=== PATIENT | male | born 1955 | race African-American/Black ===

== ENCOUNTER 2022-01-03 16:18 | Emergency (ER) | payer BC, SELFPAY ==
--- OUTSIDE RECORDS SUMMARY | 2022-01-03 16:21 | XMS REPORT | Continuity of Care Document ---
:1955 Author Organization [facility] t Address [address] [place] [address] Care Team Providers Name Role Phone Anne Marie HAMMOND Primary Care Physician FABIEN Attending Clinician Unavailable Lynette Greene MD Attending Clinician Vadim RANDLE Attending Clinician Unavailable Devorah RANDLE Attending Clinician Unavailable Marianela Attending Clinician Unavailable Jordana BEAN Attending Clinician Unavailable FABIEN Attending Clinician Unavailable RADHA Attending Clinician Unavailable ANNE MARIE Attending Clinician Unavailable SELIN Attending Clinician Unavailable KELLEY Attending Clinician Unavailable BHANU Attending Clinician Unavailable Payers Payer Name Policy Type Policy Number Effective Date Expiration Date Elzbieta anaya [id number] PPO [id number] 2005 00:00:00 Problems Condition Condition Condition Status Onset Resolution Last Treating Co mments Source Name Details Category Date Date Treatment Clinician Date Fatigue Fatigue Disease Active 01-17 Health 00:00: 00 Hyperchole Hyperchole Disease Active U T sterolemia sterolemia 04-22 He alth 00:00: 00 Low Low Disease Active UT vitamin D vitamin D 04-22 Heal th level level 00:00: 00 Toe Toe Disease Active fracture fracture 04-22 Health 00:00: 00 Smoking Smoking Disease Active UT greater greater 04-22 Health than 30 than 30 00:00: pack years pack years 00 Snoring Snoring Disease Active 04-22 Health 00:00: 00 Parasomnia Parasomnia Disease Active U T in in 04-22 Health conditions conditions 00:00: classified classified 00 elsewhere elsewhere BMI BMI Disease Active UT 30.0-30.9, 30.0-30.9, 8-09 He alth adult adult 00:00: 00 Screening Screening Disease Active UT for for 04-22 Health prostate prostate 00:00: cancer cancer 00 Essential Essential Disease Active UT (primary) (primary) 04-22 Heal th hypertensi hypertensi 00:00: on on 00 Need for Need for Disease Active UT Tdap Tdap 611 Health vaccinatio vaccinatio 00:00: n n 00 Pain of Pain of Disease Active UT toe of toe of 02-22 Health left foot left foot 00:00: 00 Elevated Elevated Disease Active UT prostate prostate 05-20 Health specific specific 00:00: antigen antigen 00 (PSA) (PSA) Vitamin D Vitamin D Disease Active UT deficiency deficiency 7-30 He alth 00:00: 00 Bacterial Bacterial Disease Active UT conjunctiv conjunctiv 7-30 He alth itis of itis of 00:00: left eye left eye 00 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 00:00: disease disease 00 Hematuria Hematuria Disease Active UT 5-23 Health 00:00: 00 History of History of Problem Resolve Univers Acute Acute d ity of upper [place] respirator respirator Ph ysici y y ans infection infection History of History of Problem Resolve Univers Acute UTI Acute UTI d ity of [place] Physici ans History of History of Problem Resolve Univers back pain back pain d ity of [place] Physici ans History of History of Problem Resolve Univers bronchitis bronchitis d it y of [place] Physici ans History of History of Problem Resolve Univers headache headache d ity of [place] Physici ans History of History of Problem Resolve Univers polyuria polyuria d ity of [place] Physici ans History of History of Problem Resolve Univers Rhinitis Rhinitis d ity of [place] Physici ans History of History of Problem Resolve Univers sciatica sciatica d ity of [place] Physici ans History of History of Problem Resolve Univers Scrotum, Scrotum, d ity of abscess abscess [place] Physici ans History of History of Problem Resolve Univers Tingling Tingling d ity of [place] Physici ans History of History of Problem Resolve Univers Viral wart Viral wart d it [place] of [place] finger [place] finger [place] Hematuria Hematuria Problem Active Uni vers ity of [place] Physici ans Multilevel Multilevel Problem Active U nivers degenerati degenerati it y of ve disc ve disc [place] disease disease Physici ans Vitamin D Vitamin D Problem Active Uni vers deficiency deficiency it y of [place] Physici ans Bacterial Bacterial Problem Active Uni vers conjunctiv conjunctiv it y of itis of itis of [place] left eye left eye Physic i ans Elevated Elevated Problem Active Unive rs prostate prostate ity of specific specific [place] antigen antigen Physici (PSA) (PSA) ans Pain of Pain of Problem Active Univers toe of toe of ity of left foot [place] foot [place] Need for Need for Problem Active Unive rs Tdap Tdap ity of vaccin[place] vaccinatio [place] Physici ans Essential Essential Problem Active Uni vers (primary) (primary) ity of hypertens[place]ens[place] Physici ans BMI BMI Problem Active Univers 30.0-30.9, 30.0-30.9, it y of adult adult [place] Physici ans Toe Toe Problem Active Univers fracture fracture ity of [place] [facility]ici ans Hyperchole Hyperchole Problem Active U nivers sterolemia sterolemia it y of [place] Physici ans Low Low Problem Active Univers vitamin D vitamin D ity of level level [place] Physici ans Snoring Snoring Problem Active Univers ity of [place] [facility]ici ans Screening Screening Problem Active Uni vers for for ity of prostate prostate [place] cancer cancer Physici ans Smoking Smoking Problem Active Univers greater greater ity of than 30 than 30 [place] pack years pack years Ph ysici ans Parasomnia Parasomnia Problem Active U nivers [place] classified classified Ph ysici elsewhere elsewhere ans Colon Colon Problem Active Univers cancer cancer [place] Current Current Problem Active Univers smoker smoker ity of [place] Physici ans Fatigue Fatigue Problem Active Univers ity of [place] Physici ans Allergies, Adverse Reactions, Alerts Allergy Allergy Status Severity Reaction(s) Onset Inactive Treating Comm ents Source Name Type Date Date Clinician Lisinopr Propensi Active UT il ty to 5-20 Health adverse 00:00: reaction 00 s Lisinopr Allergy Active Univers il TABS to drug ity of ([facility] ) Physici ans Family History Family Member Diagnosis Comments Start Date Stop Date Source Grandmother Family history of Univer sity of [place] diabetes mellitus Physici ans spouse Family history of Univers ity of [place] malignant neoplasm Physic ians Mother Family history of Univers ity of [place] essential hypertension Ph ysicians Mother Family history of Univers ity of [place] diabetes mellitus Physici ans Sister Family history of Univers ity of [place] diabetes mellitus Physici ans Social History Social Habit Start Date Stop Date Quantity Comments Source History SDOH Housing [facility] Places Lived History SDOH Social [facility] Membership History SDOH Social [facility] Meetings History SDOH Housing 2021-02-15 2021-02-15 2 [facility] Unable to Pay 00:00:00 00:00:00 History SDOH Housing 2021-02-15 2021-02-15 2 [facility] Homeless Last Year 00:00:00 00:00:00 History SDOH Social 2021-02-15 2021-02-15 4 [facility] Phone 00:00:00 00:00:00 History SDOH Social 2021-02-15 2021-02-15 4 [facility] Get Together 00:00:00 00:00:00 History SDOH Social 2021-02-15 2021-02-15 3 [facility]ctions Mormon 00:00:00 00:00:00 History SDOH Social 2021-02-15 2021-02-15 3 [facility] Living 00:00:00 00:00:00 History SDOH Physical 2021-02-15 2021-02-15 0 [facility] Health Activity DPW 00:00:00 00:00:00 History SDOH Physical 2021-02-15 2021-02-15 0 [facility] Health Activity MPS 00:00:00 00:00:00 History SDOH Stress 2021-02-15 2021-02-15 2 UT He alth 00:00:00 00:00:00 History SDOH Financial 2021-02-15 2021-02-15 5 [facility] 00:00:00 00:00:00 History SDOH Food Worry 2021-02-15 2021-02-15 1 U T Health 00:00:00 00:00:00 History SDOH Food 2021-02-15 2021-02-15 1 UT Heal th Scarcity 00:00:00 00:00:00 History SDOH Transport 2021-02-15 2021-02-15 2 [facility] Med 00:00:00 00:00:00 History SDOH Transport 2021-02-15 2021-02-15 2 [facility] Non-Med 00:00:00 00:00:00 [birth year] [facility] 00:00:00 00:00:00 Smoking Status Start Date Stop Date Source Smoker (finding) [facility] Physicians Tobacco smoking consumption [place] H ealt unknown Smokes tobacco daily 2021-01-31 00:00:00 [facility] Medications Ordered Filled Start Stop Current Ordering Indication Dosage Frequency Signature Comments Components Source Medication Medication Date Date Medication? Clinician (SIG) Name Name metFORMIN 2020-09 Yes [id number] 500mg Take 1 U T (Glucophage 2-08 tablet Health ) 500 MG 00:00: (500 mg tablet 00 total) by mouth 2 (two) times a day with meals. amLODIPine 2020-09 Yes [id number] 5mg QD Take 1 U T (Norvasc) 5 2-08 tablet (5 Hea lth MG tablet 00:00: mg total) 00 by mouth 1 (one) time each day. metoprolol 2020-09 Yes [id number] 200mg Take 1 UT succinate 2-08 tablet Health XL 00:00: (200 mg (Toprol-XL) 00 total) by 200 MG 24 mouth hr tablet every night. rosuvastati 2020-09 Yes [id number] 10mg Take 1 UT n (Crestor) 2-08 tablet (10 He alth 10 MG 00:00: mg total) tablet 00 by mouth every night. triamterene 2020-09 Yes [id number] 1{tbl} QD Take 1 UT -hydrochlor 2-08 tablet by Hea lth othiazide 00:00: mouth 1 (Maxzide-25 00 (one) time ) 37.5-25 each day. MG tablet rosuvastati 2020-09 Yes [id number] 10mg Take 1 UT n (Crestor) 2-08 tablet (10 He alth 10 MG 00:00: mg total) tablet 00 by mouth every night. rosuvastati Yes [id number] 10mg Take 1 UT n (Crestor) 8-21 tablet (10 He alth 10 MG 00:00: mg total) tablet 00 by mouth every night. triamterene 2020- No [id number] 1{tbl} QD Take 1 UT -hydrochlor 05-04 tablet by He alth othiazide 00:00: 05:59 mouth 1 (Maxzide-25 00 :00 (one) time ) 37.5-25 each day. MG tablet tamsulosin 2020- No [id number] .4mg QD Take 1 UT (Flomax) 05-04 capsule Health 0.4 MG 24 00:00: 05:59 (0.4 mg hr capsule 00 :00 total) by mouth 1 (one) time each day. metoprolol 2020- No [id number] 200mg Take 1 UT succinate 05-04 tablet Health XL 00:00: 05:59 (200 mg (Toprol-XL) 00 :00 total) by 200 MG 24 mouth hr tablet every night. amLODIPine 2020- No [id number] 5mg QD Take 1 UT (Norvasc) 5 05-04 tablet (5 He alth MG tablet 00:00: 05:59 mg total) 00 :00 by mouth 1 (one) time each day. No known No No known UT medications -20 medication He alth 16:47: s 29 metFORMIN Yes [id number] 500mg Take 1 U T (Glucophage 5-11 tablet Health ) 500 MG 00:00: (500 mg tablet 00 total) by mouth 2 (two) times a day with meals. metFORMIN 2020- No [id number] 500mg Take 1 UT (Glucophage 5-11 08-10 tablet Healt h ) 500 MG 00:00: 04:59 (500 mg tablet 00 :00 total) by mouth 2 (two) times a day with meals. metFORMIN 2020- No [id number] 500mg Take 1 UT (Glucophage 5-11 08-10 tablet Healt h ) 500 MG 00:00: 04:59 (500 mg tablet 00 :00 total) by mouth 2 (two) times a day with meals. metFORMIN 2020- No [id number] 500mg Take 1 UT (Glucophage 5-11 08-10 tablet Healt h ) 500 MG 00:00: 04:59 (500 mg tablet 00 :00 total) by mouth 2 (two) times a day with meals. metFORMIN 2020- No [id number] 500mg Take 1 UT (Glucophage 5-11 08-10 tablet Healt h ) 500 MG 00:00: 04:59 (500 mg tablet 00 :00 total) by mouth 2 (two) times a day with meals. metFORMIN 2020- No [id number] 500mg Take 1 UT (Glucophage 5-11 08-10 tablet Healt h ) 500 MG 00:00: 04:59 (500 mg tablet 00 :00 total) by mouth 2 (two) times a day with meals. metFORMIN 2020- No [id number] 500mg Take 1 UT (Glucophage 5- 08-10 tablet Healt h ) 500 MG 00:00: 04:59 (500 mg tablet 00 :00 total) by mouth 2 (two) times a day with meals. metFORMIN 2020- No [id number] 500mg Take 1 UT (Glucophage 5- 08-10 tablet Healt h ) 500 MG 00:00: 04:59 (500 mg tablet 00 :00 total) by mouth 2 (two) times a day with meals. nitrofurant 2020- No [id number] 100mg Q.5D Take 1 UT oin, 01-22 capsule Health macrocrysta 00:00: 04:59 (100 mg l-monohydra 00 :00 total) by te, mouth 2 (Macrobid) (two) 100 MG times a capsule day for 10 days. nitrofurant 2020- No [id number] 100mg Q.5D Take 1 UT oin, 01-22 capsule Health macrocrysta 00:00: 04:59 (100 mg l-monohydra 00 :00 total) by te, mouth 2 (Macrobid) (two) 100 MG times a capsule day for 10 days. nitrofurant 2020- No [id number] 100mg Q.5D Take 1 UT oin, 01-22 capsule Health macrocrysta 00:00: 04:59 (100 mg l-monohydra 00 :00 total) by te, mouth 2 (Macrobid) (two) 100 MG times a capsule day for 10 days. nitrofurant 0 2020- No [id number] 100mg Q.5D Take 1 UT oin, 01-22 capsule Health macrocrysta 00:00: 04:59 (100 mg l-monohydra 00 :00 total) by te, mouth 2 (Macrobid) (two) 100 MG times a capsule day for 10 days. nitrofurant 0 2020- No [id number] 100mg Q.5D Take 1 UT oin, 01-22 capsule Health macrocrysta 00:00: 04:59 (100 mg l-monohydra 00 :00 total) by te, mouth 2 (Macrobid) (two) 100 MG times a capsule day for 10 days. Vitamin D Vitamin D Yes FAIZMEEN TAKE 1 Univers (Ergocalcif (Ergocalcif - [employer] CLIENT SUPPORT MANAGER CAPSULE ity of ayana) 1.25 ayana) 1.25 00:00: WEEKLY. [place] MG (40707 MG (87675 00 Physi ci UT) Oral UT) Oral ans Capsule Capsule Tamsulosin Tamsulosin Yes FAIZMEEN 1 QD TAKE 1 Univers HCl - 0.4 HCl - 0.4 5-06 [employer]IENT SUPPORT MANAGER [employer]SULE ity of MG Oral MG Oral 00:00: DAILY [place] Capsule Capsule 00 Physici ans metoprolol 0 Yes 200mg Take 200 UT succinate 5-06 mg by Health XL 00:00: mouth (Toprol-XL) 00 every 200 MG 24 night. hr tablet ergocalcife 0 Yes [id number] Take UT rol 5-06 50,000 Health (Vitamin 00:00: Units by D2) 1.25 MG 00 mouth 1 (80202 UT) (one) time capsule per week. rosuvastati 0 Yes 10mg Take 10 mg UT n (Crestor) 5-06 by mouth Heal th 10 MG 00:00: every tablet 00 night. tamsulosin 2020-0 Yes .4mg QD Take 0.4 UT (Flomax) 5-06 mg by Health 0.4 MG 24 00:00: mouth 1 hr capsule 00 (one) time each day. triamterene 0 Yes 1{tbl} QD Take 1 UT -hydrochlor 5-[address] [facility] othiazide 00:00: mouth 1 (Maxzide-25 00 (one) time ) 37.5-25 each day. MG tablet amLODIPine 2021-0 Yes 5mg QD Take 5 mg UT (Norvasc) 5 5-06 by mouth 1 He alth MG tablet 00:00: (one) time 00 each day. metoprolol 2021-0 Yes 200mg Take 200 UT succinate 5-06 mg by Health XL 00:00: mouth (Toprol-XL) 00 every 200 MG 24 night. hr tablet ergocalcife 2021-0 Yes [id number] Take UT rol 5-06 50,000 Health (Vitamin 00:00: Units by D2) 1.25 MG 00 mouth 1 (84522 UT) (one) time capsule per week. rosuvastati 2021-0 Yes 10mg Take 10 mg UT n (Crestor) 5-06 by mouth Heal th 10 MG 00:00: every tablet 00 night. amLODIPine 2021-0 Yes 5mg QD Take 5 mg UT (Norvasc) 5 5-06 by mouth 1 He alth MG tablet 00:00: (one) time 00 each day. metoprolol 2021-0 Yes 200mg Take 200 UT succinate 5-06 mg by Health XL 00:00: mouth (Toprol-XL) 00 every 200 MG 24 night. hr tablet ergocalcife 2021-0 Yes [id number] Take UT rol 5-06 50,000 Health (Vitamin 00:00: Units by D2) 1.25 MG 00 mouth 1 (67848 UT) (one) time capsule per week. rosuvastati 2021-0 Yes 10mg Take 10 mg UT n (Crestor) 5-06 by mouth Heal th 10 MG 00:00: every tablet 00 night. tamsulosin 2021-0 Yes .4mg QD Take 0.4 UT (Flomax) 5-06 mg by Health 0.4 MG 24 00:00: mouth 1 hr capsule 00 (one) time each day. triamterene 2021-0 Yes 1{tbl} QD Take 1 UT -hydrochlor 5-[address] [facility] othiazide 00:00: mouth 1 (Maxzide-25 00 (one) time ) 37.5-25 each day. MG tablet amLODIPine 2021-0 Yes 5mg QD Take 5 mg UT (Norvasc) 5 5-06 by mouth 1 He alth MG tablet 00:00: (one) time 00 each day. metoprolol Yes 200mg Take 200 UT succinate 5-06 mg by Health XL 00:00: mouth (Toprol-XL) 00 every 200 MG 24 night. hr tablet ergocalcife 0 Yes [id number] Take UT rol 5-06 50,000 Health (Vitamin 00:00: Units by D2) 1.25 MG 00 mouth 1 (90887 UT) (one) time capsule per week. rosuvastati Yes 10mg Take 10 mg UT n (Crestor) 5-06 by mouth Heal th 10 MG 00:00: every tablet 00 night. tamsulosin Yes .4mg QD Take 0.4 UT (Flomax) 5-06 mg by Health 0.4 MG 24 00:00: mouth 1 hr capsule 00 (one) time each day. triamterene Yes 1{tbl} QD Take 1 UT -hydrochlor 5-06 tablet by Hea lth othiazide 00:00: mouth 1 (Maxzide-25 00 (one) time ) 37.5-25 each day. MG tablet amLODIPine Yes 5mg QD Take 5 mg UT (Norvasc) 5 5-06 by mouth 1 He alth MG tablet 00:00: (one) time 00 each day. amLODIPine amLODIPine Yes FAIZMEEN TAKE ONE Univers Besylate 5 Besylate 5 8-09 [employer]IENT SUPPORT MANAGER TABLET BY ity of MG Oral MG Oral 00:00: MOUTH [place] Tablet Tablet 00 DAILY Physici ans Triamterene Triamterene Yes FAIZMEEN TAKE 1 Univers -HCTZ -HCTZ 3-29 [employer] CLIENT SUPPORT MANAGER TABLET BY it y of 37.5-25 MG 37.5-25 MG 00:00: MOUTH ONCE [place] Oral Tablet Oral Tablet 00 DAILY Physici ans Metoprolol Metoprolol Yes FAIZMEEN TAKE 1 Univers Succinate Succinate 3-29 [employer] CLIENT SUPPORT MANAGER TABLET BY ity of ER 200 MG ER 200 MG 00:00: MOUTH AT [place] Oral Tablet Oral Tablet 00 BEDTIME Physici Extended Extended ans Release 24 Release 24 Hour Hour Rosuvastati Rosuvastati Yes FAIZMEEN TAKE 1 Univers n Calcium n Calcium 3-29 [employer] CLIENT SUPPORT MANAGER TABLET BY miriam of 10 MG Oral 10 MG Oral 00:00: MOUTH ONCE [place] Tablet Tablet 00 DAILY AT Physici BEDTIME ans Immunizations Ordered Immunization Filled Immunization Date Status Commen ts Source Name Name Annie COVID-19 2020-11-28 Completed Universi ty of Vaccine 100 00:00:00 [place] Physici ans MCG/0.5ML Intramuscular Suspension Covid-19 Moderna 2020-11-28 Completed [facility] SARS-CoV-2 00:00:00 Vaccination Covid-19 Moderna 2020-11-28 Completed [facility] SARS-CoV-2 00:00:00 Vaccination COVID-19 Moderna 18 2020-11-28 Completed UT He alth & Over Vaccination 00:00:00 COVID-19 Moderna 18 2020-11-28 Completed UT He alth & Over Vaccination 00:00:00 COVID-19 Moderna 18 2020-11-28 Completed UT He alth & Over Vaccination 00:00:00 Covid-19 Moderna 2020-11-28 Completed [facility] SARS-CoV-2 00:00:00 Vaccination Covid-19 Moderna 2020-11-28 Completed [facility] SARS-CoV-2 00:00:00 Vaccination Moderna COVID-19 2020-10-29 Completed Universi ty of Vaccine 100 00:00:00 [place] Physici ans MCG/0.5ML Intramuscular Suspension Covid-19 Moderna 2020-10-29 Completed [facility] SARS-CoV-2 00:00:00 Vaccination Covid-19 Moderna 2020-10-29 Completed [facility] SARS-CoV-2 00:00:00 Vaccination COVID-19 Moderna 18 2020-10-29 Completed UT He alth & Over Vaccination 00:00:00 COVID-19 Moderna 18 2020-10-29 Completed UT He alth & Over Vaccination 00:00:00 COVID-19 Moderna 18 2020-10-29 Completed UT He alth & Over Vaccination 00:00:00 Covid-19 Moderna 2020-10-29 Completed [facility] SARS-CoV-2 00:00:00 Vaccination Covid-19 Moderna 2020-10-29 Completed [facility] SARS-CoV-2 00:00:00 Vaccination Tdap 2019-02-22 Completed University of 15:35:00 [place] Physicia ns Tdap 2019-02-22 [facility] 00:00:00 Tdap 2019-02-22 [facility] 00:00:00 Tdap 2019-02-22 Completed [facility] 00:00:00 Tdap 2019-02-22 [facility]pleted [facility] 00:00:00 Tdap 2019-02-22 [facility]pleted [facility] 00:00:00 Tdap 2019-02-22 [facility]pleted [facility] 00:00:00 Tdap 2019-02-22 [facility]pleted [facility] 00:00:00 Vital Signs Vital Name Observation Time Observation Value Comments Source Weight 2021-01-17 265 [lb_av] [facility] 09:59:00 [place] Physician s Body mass index 2021-01-17 30.24 kg/m2 University o f (BMI) [Ratio] 09:59:00 [place] Physicia ns Body height 2021-01-17 78.5 [in_us] [facility] 09:59:00 [place] Physician s Body temperature 2021-01-17 97.9 [degF] Method: Oral University 09:59:00 [place] Physician s Heart Rate 2021-01-17 65 /min [facility] 09:59:00 [place] Physician s Systolic blood 2021-01-17 166 mm[Hg] Location: [facility] 09:59:00 Position: [place] Physician s Sitting Diastolic blood 2021-01-17 96 mm[Hg] Location: [facility] 09:59:00 Position: [place] Physician s Sitting BP Systolic 2019-04-22 158 mm[Hg] [facility] 09:58:00 [place] Physician s BP Diastolic 2019-04-22 87 mm[Hg] [facility] 09:58:00 [place] Physician s BP Systolic 2019-04-22 169 mm[Hg] [facility] 09:01:00 [place] Physician s BP Diastolic 2019-04-22 98 mm[Hg] [facility] 09:01:00 [place] Physician s Weight 2019-04-22 265 [lb_av] [facility] 09:01:00 [place] Physician s Body Mass Index 2019-04-22 30.24 kg/m2 University o f Calculated 09:01:00 [place] Physician s Height 2019-04-22 78.5 [in_us] [facility] 09:01:00 [place] Physician s Temperature 2019-04-22 98.4 [degF] Method: Oral University of 09:01:00 [place] Physician s Heart Rate 2019-04-22 69 /min University of 09:01:00 [place] Physician s BP Systolic 2019-02-22 155 mm[Hg] Location: [facility]; [facility] 14:35:00 Position: [place] Physician s Sitting BP Diastolic 2019-02-22 88 mm[Hg] Location: [facility]; [facility] 14:35:00 Position: [place] Physician s Sitting Temperature 2019-02-22 98.4 [degF] Method: Oral University 14:35:00 [place] Physician s Heart Rate 2019-02-22 72 /min University 14:35:00 [place] Physician s BP Systolic 2018-04-12 161 mm[Hg] Location: [facility] 13:14:00 Position: [place] Physician s Sitting BP Diastolic 2018-04-12 95 mm[Hg] Location: [facility] 13:14:00 Position: [place] Physician s Sitting Weight 2018-04-12 236 [lb_av] [facility] 13:14:00 [place] Physician s Body Mass Index 2018-04-12 26.93 kg/m2 [facility] Calculated 13:14:00 [place] Physician s Height 2018-04-12 78.5 [in_us] University 13:14:00 [place] Physician s Temperature 2018-04-12 98.4 [degF] Method: Oral [facility] 13:14:00 [place] Physician s Heart Rate 2018-04-12 55 /min [facility] 13:14:00 [place] Physician s Procedures Procedure Date / Time Performed Performing Clinician Sourc e [QL] CMP W/EGFR 2021-01-17 00:00:00 [facility] Physicians [QL] HEMOGLOBIN A1c 2021-01-17 00:00:00 [facility] Physicians [QL] LIPID PANEL 2021-01-17 00:00:00 [facility] Physicians [QL] VITAMIN D, 2021-01-17 00:00:00 [facility] 25-HYDROXY, LC/MS/MS Physicians [QL] CBC (INCLUDES 2021-01-17 00:00:00 [facility] DIFF/PLT) Physicians [QL] TSH, 3RD 2021-01-17 00:00:00 [facility] GENERATION W/REFLEX TO Physician s FT4 [QL] URINALYSIS, 2021-01-17 00:00:00 [facility] COMPLETE W/REFLEX TO Physicians CULTURE [QL] MICROALBUMIN, 2021-01-17 00:00:00 [facility] RANDOM URINE (W/O Physicians CREATININE) CT Abdomen/Pelvis wo 2021-01-17 00:00:00 [facility] contrast [id number] Physicians Hemoccult ICT 2019-04-22 00:00:00 [facility] Physicians [N] AAA Abdominal 2019-04-22 00:00:00 [facility] Aortic Aneurysm Physicians Screening [id number] [QLH] CMP W/EGFR 2019-04-22 00:00:00 [facility] Physicians [QLH] HEMOGLOBIN A1c 2019-04-22 00:00:00 [facility] Physicians [QLH] LIPID PANEL 2019-04-22 00:00:00 [facility] Physicians [QLH] TSH, 3RD 2019-04-22 00:00:00 [facility] GENERATION W/REFLEX TO Physician s FT4 [QLH] PSA, TOTAL 2019-04-22 00:00:00 [facility] Physicians [QLH] CBC (INCLUDES 2019-04-22 00:00:00 [facility] DIFF/PLT) Physicians [QLH] VITAMIN D, 2019-04-22 00:00:00 [facility] 25-HYDROXY, LC/MS/MS Physicians [QL] HEPATITIS PANEL 2019-04-22 00:00:00 [facility] Physicians [QH] HIV AB, HIV 1/2, 2019-04-22 00:00:00 [facility] EIA, WITH REFLEXES Physicians [QLH] CMP W/EGFR 2019-02-22 00:00:00 [facility] Physicians [QLH] HEMOGLOBIN A1c 2019-02-22 00:00:00 [facility] Physicians [QLH] LIPID PANEL 2019-02-22 00:00:00 [facility] Physicians [QLH] MICROALBUMIN, 2019-02-22 00:00:00 [facility] RANDOM URINE Physicians (W/CREATININE) [QLH] TSH, 3RD 2019-02-22 00:00:00 [facility] GENERATION W/REFLEX TO Physician s FT4 [QLH] CBC (INCLUDES 2019-02-22 00:00:00 [facility] DIFF/PLT) Physicians [QLH] PSA, TOTAL 2019-02-22 00:00:00 [facility] Physicians [QLH] VITAMIN D, 2019-02-22 00:00:00 [facility] 25-HYDROXY, LC/MS/MS Physicians [U] XRAY FOOT MIN 3 2019-02-22 00:00:00 [facility] VWS LEFT [id number] Physicians [QLH] CBC (INCLUDES 2018-04-12 00:00:00 [facility] DIFF/PLT) Physicians [QLH] CMP W/EGFR 2018-04-12 00:00:00 [facility] Physicians [QLH] HEMOGLOBIN A1c 2018-04-12 00:00:00 [facility] Physicians [QL] PSA, TOTAL 2018-04-12 00:00:00 [facility] Physicians [QL] VITAMIN D, 2018-04-12 00:00:00 [facility] 25-HYDROXY, LC/MS/MS Physicians [QLH] MAGNESIUM 2018-04-12 00:00:00 [facility] Physicians Encounters Start End Encounter Admission Attending Care Care Encounter Source Date/Time Date/Time Type Type Clinicians Facility Department ID 2021-08-15 Outpatient [facility] [id number] [place] 09:43:45 [facility] 2021-12-31 2021-12-31 Telephone ARAVIND Greene 6400 1.2.840.114 [id number] [place] 00:00:00 00:00:00 Brendon DOWNEY [id number] Health Kondred 9.2.7.2.686 [id number] 1 2021-08-21 2021-08-21 Telephone Bob Conn 1.2.840.114 [id number] [place] 00:00:00 00:00:00 aguslagiovanni Medina [id number] Health Medical 9.2.7.2.686 [place] [id number] 1 2021-08-15 2021-08-15 Telephone Bob Conn 1.2.840.114 [id number] [place] 00:00:00 00:00:00 [facility] [place] [id number] Health Medical 9.2.7.2.686 [place] [id number] 1 2021-07-12 2021-07-12 Patient Nadia Fierro 1.2.840.114 [id number] [place] 00:00:00 00:00:00 Outreach Alexandra Fierro [id number] Health Medical 9.2.7.2.686 [place] [id number] 1 2021-02-15 2021-02-15 Patient Nadia Fierro 1.2.840.114 [id number] [place] 00:00:00 00:00:00 Outreach Alexandra Fierro [id number] Health Medical 9.2.7.2.686 [place] [id number] 1 2021-02-12 2021-02-12 Patient Nadia Fierro 1.2.840.114 [id number] [place] 00:00:00 00:00:00 Outreach Alexandra Fierro [id number] Health Medical 9.2.7.2.686 [place] [id number] 1 2021-01-31 2021-01-31 Telemedici Bob Conn 1.2.840.114 [id number] [place] 16:00:00 16:30:00 ne Shubham Medina 350.1.13.58 Health Medical 9.2.7.2.686 [place] [id number] 1 2021-01-31 2021-01-31 Abstract Gricelda Fairchild 1.2.840 .114 [id number] [place] 00:00:00 00:00:00 Gricelda Fairchild [id number] Health Medical 9.2.7.2.686 [place] [id number] 1 2021-01-29 2021-01-29 Patient Marcie Bear 1.2.840.114 [id number] [place] 00:00:00 00:00:00 Outreach Marcie Bearaire [id number] Health Medical 9.2.7.2.686 [place] [id number] 1 2021-01-23 2021-01-23 Telephone Hanna Silveira 1.2.840.114 [id number] [place] 00:00:00 00:00:00 Hanna Silveira 350.1.13.58 Health Medical 9.2.7.2.686 [place] [id number] 1 2021-01-22 2021-01-22 Orders Bob Conn 1.2.840.114 [id number] [place] 00:00:00 00:00:00 Only Shubham Robinsaire [id number] Health Medical 9.2.7.2.686 [place] [id number] 1 2021-01-17 2021-01-17 Appointmen FABIEN, [facility] Family [id number] Univers 10:15:00 10:15:00 t; [facility]HAM CONN [facility] 2020-12-17 2020-12-17 Outpatient BROWN, [facility] [id number] [place] 00:00:00 00:00:00 MARIA LUISA 217 Method i 2020-12-17 2020-12-17 [facility] [id number] [address] [place] 00:00:00 00:00:00 MARIA LUISA 095 Method i 2020-12-10 2020-12-10 [facility] [id number] [address] [place] 00:00:00 00:00:00 MARIA LUISA 950 Method i 2020-06-11 2020-06-11 Outpatient [facility] [id number] [address] [place] 00:00:00 00:00:00 MARIA LUISA 178 Method i 2019-05-06 2019-05-06 Appointmen ANNE MARIE [facility] UTP [id number] Univers 10:00:00 10:00:00 t; PHOEBE KENNEY ity of TREPANJEET M.D. [place], M.D. Physici ans 2019-04-22 2019-04-22 Appointmen KENNEYARAVIND WILDER Family [id number] Univers 08:20:00 08:20:00 t; PHOEBE KENNEY Practice - ity Bethany flannery M.D. Physici ans 2019-03-11 2019-03-11 Appointmen ARAVIND KENNEY Family [id number] Univers 10:40:00 10:40:00 t; ANNE MARIE PHOEBE, Practice - ity of PHOEBE flannery M.D. Physici ans 2019-02-22 2019-02-22 Appointmen ARAVIND KENNEY Family [id number] Univers 14:00:00 14:00:00 t; KENNEY PHOEBE, Practice - ity of PHOEBE flannery M.D. Physici ans 2018-04-12 2018-04-12 Appointmen ARAVIND SMALLWOOD [place] [id number] Univers 13:20:00 13:20:00 t; JUSTYN SMALLWOOD, Family ity of JUSTYN, D.O. [facility] D.O. Physici ans 2017-12-31 2017-12-31 Appointmen SELIN, [facility] [id number] Univers 15:00:00 15:00:00 t; JUSTYN SMALLWOOD ity of JUSTYN, D.O. [place] D.O. Physici ans 2017-11-24 2017-11-24 Appointmen SELIN, [facility] UTP [id number] Univers 09:40:00 09:40:00 t; JUSTYN SMALLWOOD ity of JUSTYN, D.O. [place] D.O. Physici ans 2017-03-25 2017-03-25 Appointmen KELLEY, [facility] UTP [id number] Univers 15:40:00 15:40:00 t; THIAGO BENSON ity of MANNIE, M.D. [place] M.D. Physici ans 2016-11-28 2016-11-28 Appointmen KELLEY, ARAVIND UTP [id number] Univers 09:20:00 09:20:00 t; THIAGO BENSON ity of MANNIE, M.D. [place] M.D. Physici ans 2016-07-18 2016-07-18 Appointmen BHANU, ARAVIND UTP [id number] Univers 13:00:00 13:00:00 t; ANANTH DRUMMOND P.A. i ty of [place]ie [place] Physici ans Results Test Description Test Time Test Comments Results Result Comments Source [QL] URINALYSIS, COMPLETE W/REFLEX TO CULTURE 2021-01-17 00: 00:00 Test Item Value Reference Range Interpretation Comme nts COLOR; Normal (test code = DARK YELLOW YELLOW N 5778-6) APPEARANCE (test code = CLEAR CLEAR N APPEARANCE) SPECIFIC GRAVITY; Normal 1.033 1.001-1.035 N (test code = 2965-2) PH; Normal (test code = 5.5 5.0-8.0 N 2756-5) GLUCOSE; Normal (test code NEGATIVE NEGATIVE N = 1547-9) BILIRUBIN; Normal (test NEGATIVE NEGATIVE N code = 76816-9) KETONES; Abnormal (test TRACE NEGATIVE A code = 85483-2) OCCULT BLOOD; Normal (test NEGATIVE NEGATIVE N code = 77452-1) PROTEIN; Abnormal (test TRACE NEGATIVE A code = 74173-5) NITRITE (test code = NEGATIVE NEGATIVE N NITRITE) LEUKOCYTE ESTERASE (test TRACE NEGATIVE A code = LEUKOCYTE ESTERASE) WBC; Normal (test code = 0-5 See_Comment N [A utomated message] The 6690-2) system which [employer] nerated this result tra nsmitted reference range : < OR = 5. The reference r veronica was not used to int erpret this result as arielle l/abnormal. RBC; Normal (test code = NONE SEEN See_Comment N [A utomated message] The 789-8) system which [employer] nerated this result tra nsmitted reference range : < OR = 2. The reference r veronica was not used to int erpret this result as arielle l/abnormal. SQUAMOUS EPITHELIAL CELLS 0-5 See_Comment [ Automated message] The (test code = 44444-9) system which generated this result tra nsmitted reference range : < OR = 5. The reference r veronica was not used to int erpret this result as arielle l/abnormal. BACTERIA; Abnormal (test FEW NONE SEEN A code = 630-4) HYALINE CAST; Normal (test NONE SEEN NONE SEEN N code = 93007-9) COMMENTS (test code = FEW MUCOUS THREADS 23967-8) [facility] [place] [facility], [facility]] CBC (INCLUDES DIFF/PLT)2019-04-22 10:45:01 Test Item Value Reference Range Interpretation Comments WBC (test code = 6690-2) 6.3 {K/CMM} 3.7-10.4 RBC (test code = 789-8) 5.01 {M/CMM} 4.70-6.10 Hgb (test code = 718-7) 15.0 g/dl 14.0-18.0 Hct (test code = 94627-0) 45.5 % 42.0-54.0 MCV (test code = 787-2) 90.8 fL 80.0-94.0 MCH (test code = 785-6) 29.9 pg 27.0-31.0 MCHC (test code = 786-4) 33.0 g/dl 32.0-36.0 RDW (test code = 788-0) 13.5 % 11.5-14.5 Platelet (test code = 03346-1) 276 {K/CMM} 133-450 Mean Platelet Volume (test code 8.1 fL 7.4-10.4 = 75160-9) [facility]LY [facility], [facility]] [id number] 10:45:01 Test Item Value Reference Range Interpretation Comments Segmented Neutrophils (test code 49.0 % 45.0-75.0 = 44372-1) Monocytes (test code = 82627-3) 9.3 % 2.0-12.0 Lymphocytes (test code = 74516-3) 37.0 % 20.0-40.0 Eosinophils; Above High Threshold 4.3 % 0.0-4.0 (test code = 25110-7) Basophils (test code = 706-2) 0.4 % 0.0-1.0 Segs-Bands # (test code = 3.1 {K/CMM} 1.5-8.1 99380-8) Lymphocytes # (test code = 2.3 {K/CMM} 1.0-5.5 96101-6) Monocytes # (test code = 88203-6) 0.6 {K/CMM} 0.0-0.8 Eosinophils # (test code = 0.3 {K/CMM} 0.0-0.5 11631-1) [facility], [facility]] HEPATITIS [id number] 10:45:01 Test Item Value Reference Range Interpretation Comments Hepatitis B Surface Antigen (test Negative Negative code = 5195-3) Hepatitis C Antibody (test code = Negative 35775-2) Hepatitis B Core IgM (test code = Negative Negative 27711-3) Hepatitis A IgM (test code = Negative Negative 65429-4) [facility][] HIV AB, HIV 1/2, EIA, WITH [id number] 10:45:01 Test Item Value Reference Range Interpretation Comments HIV Ag/Ab 4th Gen Negative Negative HIV test r esults should be (test code = considered posi tive only 60030-9) when both the s creening andthe confirma tory tests are positive. A negative confirmatory te st in patientswith a positive screening test does not exclude HIV inf ection. If clincallywarran brayden, an HIV RNA quantitativ e test should be order ed. [facility], [facility]] VITAMIN D, 25-HYDROXY, [id number] 10:45:01 Test Item Value Reference Range Interpretation Comments Vitamin D, 25-OH, 26.3 ng/ml 30.0-100.0 Reference range is based Total (test code on recommen dations in the = Vitamin D, EndocrineSociet y Clinical 25-OH, Total) Practice Guide line (J Clin Endocrinol Prmgg9429;96:19 11-1930) [facility], [facility]] HEMOGLOBIN [id number] 10:45:01 Test Item Value Reference Range Interpretation Comments Hemoglobin A1c; Above High Threshold 6.9 % <=5.6 (test code = 4548-4) [facility], [facility]] CMP [id number] 10:45:01 Test Item Value Reference Range Interpretation Comments Sodium Level 140 {mEq/l} 135-145 (test code = 2951-2) Potassium Level 4.0 {mEq/l} 3.5-5.1 (test code = 2823-3) Chloride Level 103 {mEq/l} 95-109 (test code = 2075-0) Carbon Dioxide; 33 {mEq/l} 24-32 Above High Threshold (test code = 2027-) AGAP; Below Low 8.0 {mEq/l} 10.0-20.0 Threshold (test code = 48442-1) Glucose Lvl; 108 mg/dl 70-99 Adult reference range Above High values reflect the Threshold (test clinical liss delinesof the code = 2345-7) [place] [employer]. Creatinine Lvl 1.40 mg/dl 0.50-1.40 (test code = 2160-0) Blood Urea 17 mg/dl 7-22 Nitrogen (test code = 3094-0) BUN/Creatinine 12 6-25 Ratio (test code = 3097-3) Total Protein 7.9 g/dl 6.4-8.4 (test code = 2885-2) Albumin Lvl (test 4.5 g/dl 3.5-5.0 code = 1751-7) Globulin (test 3.4 g/dl 2.7-4.2 code = 73480-5) A/G Ratio (test 1.3 0.7-1.6 code = 1759-0) Calcium Level 9.7 mg/dl 8.5-10.5 Total (test code = 32682-4) ALT (test code = 32 u/l 0-65 1743-4) AST (test code = 34 u/l 0-37 22616-3) Bili Total (test 0.4 mg/dl 0.2-1.3 code = 1975-2) Alk Phos (test 109 u/l 39-136 The pediatric reference code = 1783-0) ranges for th is test represent a CLSI-basedtrans ference of the CALIPER jessica abase of pediatric refer ence intervals to eSiemens Bulpitt analyzer (Clinical Biochemistry 46 (2013): 2249-4176). [facility] has not internally validated these reference ranges and therefore they should be used only in th e context of a thoroughcl inical assessment. eGFR (test code = 54 The eGFR i s calculated 13963-7) {ML/MIN/1.7} using the CKD-E PI formula. In mos t young, healthyindividu als the eGFR will be >9 0 mL/min/1.73m2. The eGFR declines with a ge. AneGFR of 60-89 may be normal in some population s, particularly th e elderly, forwhom the CKD -EPI formula has not been extensively fransico idated. Use of the eGFR isnot recommended in the following populations:Ind ividuals with unstable c reatinine concentrations, including patient s and those with seri ous co-morbid conditions.Leny ents with extremes in mus yoanna mass or diet.The jessica a above are obtained fr om the National Kidney Disease Education Progr am(NKDEP) which lien becker recommends that when the eGFR is used in patientswith ex tremes of body mass index for purposes of akin g dosing, the eGFR should be multiplied by t he estimated BMI. [facility], [facility]] LIPID [id number] 10:45:01 Test Item Value Reference Range Interpretation Comments Chol (test code = 2093-3) 123 mg/dl <=199 Trig; Above High Threshold (test 200 mg/dl <=149 code = 2571-8) HDL Cholesterol; Below Low 32 mg/dl >=61 Threshold (test code = 2085-9) CHD Risk; Below Low Threshold (test 3.84 4.00-7.30 code = 05088-3) LDL (test code = 54934-4) 51 mg/dl <=99 VLDL (test code = VLDL) 40 [facility], [facility]] TSH, 3RD GENERATION W/REFLEX TO FT4 2019-04-22 10:45:01 Test Item Value Reference Range Interpretation Comments TSH (test code = 82731-7) 1.450 {uIU/ml} 0.360-3.740 [facility], [facility]] PSA, [id number] 10:45:01 Test Item Value Reference Range Interpretation Comments Prostate Specific 1.33 ng/ml 0.00-4.00 0-4 ng/ml is clinically Antigen (test code accepted reference range = 2857-1) from theAmerica n Cancer Society in 1996 for Total PSA.A PSA value in the range of 0.1 to 0.6 ng/mL is indeterminat eif being used as an kathleen cator of recurrent or re sidual disease. [facility][U] XRAY FOOT MIN 3 VWS LEFT [id number] 10:03:00 Test Item Value Reference Range Interpretation Comments XR FOOT MIN 3 VWS EXAM: XR FOOT MIN 3 VWS LEFT (test code = LEFT DATE: 04/22/2019 10:08 XR FOOT MIN 3 VWS AM CDT INDICATION: Left LEFT) foot pain COMPARISON: Left foot radiographs 02/22/2019 TECHNIQUE: AP, lateral and oblique radiographs of the left foot DISCUSSION: Interval healing of nondisplaced third proximal phalanx fracture. No new fracture identified. 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 No soft tissue swelling. IMPRESSION:1. No acute fracture identified.2. Interval healing of nondisplaced third proximal phalanx fracture. 04/22/2019 3:43 PM CDT Rhett Savage [facility][U] XRAY FOOT MIN 3 VWS LEFT [id number] 15:01:00 Test Item Value Reference Range Interpretation Comments XR FOOT MIN 3 VWS EXAM: XR FOOT MIN 3 VWS LEFT (test code = LEFT DATE: 02/22/2019 3:17 XR FOOT MIN 3 VWS PM CDT INDICATION: Left LEFT) third digit pain. COMPARISON: None available TECHNIQUE: AP, lateral and oblique radiographs of the left foot DISCUSSION: Nondisplaced oblique fracture of the third phalanx neck. Mild joint space narrowing and small osteophytes of the first MTP joint. Small calcaneal enthesophytes. No soft tissue abnormality is identified. IMPRESSION:1. Nondisplaced oblique fracture of the third proximal phalanx neck.2. Mild first MTP osteoarthrosis. 02/23/2019 12:43 PM CDT Rhett Savage [facility][QLH] CBC (INCLUDES DIFF/PLT)2018-04-12 13:37:01 Test Item Value Reference Range Interpretation Comments WBC (test code = 6690-2) 7.5 {K/CMM} 3.7-10.4 RBC (test code = 789-8) 4.77 {M/CMM} 4.70-6.10 Hgb (test code = 718-7) 14.7 g/dl 14.0-18.0 Hct (test code = 87739-6) 42.7 % 42.0-54.0 MCV (test code = 787-2) 89.6 fL 80.0-94.0 MCH (test code = 785-6) 30.7 pg 27.0-31.0 MCHC (test code = 786-4) 34.3 g/dl 32.0-36.0 RDW (test code = 788-0) 13.3 % 11.5-14.5 Platelet (test code = 36797-6) 329 {K/CMM} 133-450 Mean Platelet Volume (test code 8.3 fL 7.4-10.4 = 46295-8) [facility], [facility]] [id number] 13:37:01 Test Item Value Reference Range Interpretation Comments Segmented Neutrophils (test code 51.5 % 45.0-75.0 = 55505-4) Monocytes (test code = 16471-2) 8.3 % 2.0-12.0 Lymphocytes (test code = 51801-0) 34.1 % 20.0-40.0 Eosinophils; Above High Threshold 5.4 % 0.0-4.0 (test code = 59271-7) Basophils (test code = 706-2) 0.7 % 0.0-1.0 Segs-Bands # (test code = 3.9 {K/CMM} 1.5-8.1 27756-6) Lymphocytes # (test code = 2.6 {K/CMM} 1.0-5.5 79820-0) Monocytes # (test code = 15679-9) 0.6 {K/CMM} 0.0-0.8 Eosinophils # (test code = 0.4 {K/CMM} 0.0-0.5 30860-5) Basophils # (test code = 93808-2) 0.1 {K/CMM} 0.0-0.2 [facility], [facility]] CMP [id number] 13:37:01 Test Item Value Reference Range Interpretation Comments Sodium Level 142 {mEq/l} 135-145 (test code = 2951-2) Potassium Level 3.7 {mEq/l} 3.5-5.1 (test code = 2823-3) Chloride Level 102 {mEq/l} 95-109 (test code = 2075-0) Carbon Dioxide 32 {mEq/l} 24-32 (test code = 2027-9) AGAP (test code = 11.7 {mEq/l} 10.0-20.0 95719-8) Glucose Lvl (test 81 mg/dl 70-99 Adult refe rence range code = 2345-7) values reflec t the clinical guidel inesof the [place] Diabet es Association. Creatinine Lvl 1.40 mg/dl 0.50-1.40 (test code = 2160-0) Blood Urea 17 mg/dl 7-22 Nitrogen (test code = 3094-0) BUN/Creatinine 12 6-25 Ratio (test code = 3097-3) Total Protein 7.7 g/dl 6.4-8.4 (test code = 2885-2) Albumin Lvl (test 4.3 g/dl 3.5-5.0 code = 1751-7) Globulin (test 3.4 g/dl 2.7-4.2 code = 83549-9) A/G Ratio (test 1.3 0.7-1.6 code = 1759-0) Calcium Level 8.7 mg/dl 8.5-10.5 Total (test code = 54393-9) ALT (test code = 24 u/l 0-65 1743-4) AST (test code = 28 u/l 0-37 93045-9) Bili Total (test 0.5 mg/dl 0.2-1.3 code = 1974-2) Alk Phos (test 103 u/l 39-136 code = 1783-0) eGFR (test code = 54 The eGFR i s calculated 76126-7) {ML/MIN/1.7} using the CKD-E PI formula. In mos t young, healthyindividu als the eGFR will be >9 0 mL/min/1.73m2. The eGFR declines with a ge. AneGFR of 60-89 may be normal in some population s, particularly th e elderly, forwhom the CKD -EPI formula has not been extensively fransico idated. Use of the eGFR isnot recommended in the following populations:Ind ividuals with unstable c reatinine concentrations, including patient s and those with seri ous co-morbid conditions.Leny ents with extremes in mus yoanna mass or diet.The jessica a above are obtained fr om the National Kidney Disease Education Progr am(NKDEP) which lien becker recommends that when the eGFR is used in patientswith ex tremes of body mass index for purposes of akin g dosing, the eGFR should be multiplied by t he estimated BMI. [facility], [facility]] [id number] 13:37:01 Test Item Value Reference Range Interpretation Comments Magnesium Level (test code = 2.2 mg/dl 1.8-2.4 02037-6) [facility], [facility]] PSA, [id number] 13:37:01 Test Item Value Reference Range Interpretation Comments Prostate Specific 1.87 ng/ml 0.00-4.00 0-4 ng/ml is clinically Antigen (test code accepted reference range = 2857-1) from theHealth[place] Cancer Society in 1996 for Total PSA.A PSA value in the range of 0.1 to 0.6 ng/mL is indeterminat eif being used as an kathleen cator of recurrent or re sidual disease. [facility], [facility]] VITAMIN D, 25-HYDROXY, LC/MS/[id number] 13:37:01 Test Item Value Reference Range Interpretation Comments Vitamin D, 25-OH, 23.9 ng/ml 30.0-100.0 Reference range is based Total (test code on recommen dations in the = Vitamin D, EndocrineSociet y Clinical 25-OH, Total) Practice Guide line (J Clin Endocrinol Rjtdc7701;96:19 11-1930) [facility], [facility]] HEMOGLOBIN [id number] 13:37:01 Test Item Value Reference Range Interpretation Comments Hemoglobin A1c; Above High Threshold 6.5 % <=5.6 (test code = 4548-4) [facility]
[2022-01-03] MEDS ORDERED: NA CHLORIDE 0.9% 2,000 ML ONE (17:53)
[2022-01-03] MEDS ORDERED: NA CHLORIDE 0.9% 100 ML IV ONE (17:53)
[2022-01-03] MEDS ORDERED: ONDANSETRON 4 MG/2 ML VIAL ONE (17:53)
[2022-01-03] MEDS ORDERED: CEFTRIAXONE 2000 MG/VIAL ONE (17:53)
[2022-01-03] MEDS ORDERED: FAMOTIDINE 20 MG/2 ML VIAL IV ONE (17:54)
[2022-01-03 18:55] LABS: Urine Blood 2+ (Negative); Urine Glucose Negative (Negative); Urine Protein 2+ (Negative); Urine Specific Gravity 1.025 (1.005-1.030)
[2022-01-03 19:04] LABS: Absolute Lymphocytes (CBC) 0.8 K/uL (0.7-4.9); Hematocrit 43.5 % (39.6-49.0); Lymphocytes % 14.1 % (15.3-44.8); MPV 8.3 fL (7.6-11.3); RBC Red Blood Cell Count 4.93 M/uL (4.33-5.43)
[2022-01-03 19:21] LABS: Albumin 3.3 g/dL (3.4-5.0); Bilirubin Total 0.5 mg/dL (0.2-1.0); Potassium 3.1 mmol/L (3.5-5.1); Protein, Total 7.8 g/dL (6.4-8.2)
--- NOTE | 2022-01-03 20:10 | RAD REPORT ---
EXAM DESCRIPTION: CT - Abdomen Pelvis W Contrast - 01/03/2022 7:49 pm CLINICAL HISTORY: Abdominal pain COMPARISON: none. TECHNIQUE: Computed axial tomography of the abdomen pelvis was obtained. 100 cc Isovue-300 was admin istered intravenously. Oral contrast was not requested which limits evaluation of bowel. All CT scans are performed using dose optimization technique as appropriate and may include automated exposure control or mA/KV adjustment according to patient size. FINDINGS: 5 millimeter nodule right lung base. 6 millimeter hypervascular lesion medial segment left lobe liver. 10 millimeter vascular lesion right lobe liver in the dome. 6 millimeter vascular splenic lesion. There is no evidence of diverticulitis. Normal appendix. Small to moderate inguinal hernias containing fat. Spondylosis involves lumbar spine resulting in spinal stenosis. Prostate gland mildly enlarged IMPRESSION: 5 millimeter nodule right lung base. CT chest in 6 months recommended Hepatic and splenic vascular lesions are nonspecific. These may represent hemangiomas. Metastatic dis ease can also have this appearance but probably is less likely. It is recommended that the patient over[place] ve a followup ultrasound in 3 months for re-evaluation
--- NOTE | 2022-01-03 20:16 | EDPHYS ---
Physician Documentation [facility] Name: Chris Barker Age: 66 yrs Sex: Male : 1955 Arrival Date: 01/03/2022 Time: 16:24 Bed 17 Private MD: ED Physician Macario Jett HPI: 01/03 17:11 This 66 yrs old Black Male presents to ER via Ambulatory with complaints of Urinary jmm Problem. 17:11 Onset: The symptoms/episode began/occurred gradually. 66-year-old male with history of jmm hypertension, diabetes mellitus who presents emerged part with complaints of right flank pain which radiates into the right lower quadrant. Patient states he is also had blood in his urine. Does have a history of kidney stones. Is also felt some fatigue and chills. Denies vomiting or diarrhea.. Historical: - Allergies: 17:08 lisinopril; jb4 - PMHx: 17:08 HTN; DM type 2; kidney stones; jb4 - Immunization history:: Adult Immunizations up to date. - Social history:: Smoking status: Patient reports the use of cigarette tobacco products, occasional. ROS: 17:11 Respiratory: Negative for shortness of breath, cough, wheezing, and pleuritic chest jmm pain. 17:11 Constitutional: Positive for body aches, chills, fatigue. 17:11 Abdomen/GI: Positive for abdominal pain, nausea. 17:11 All other systems are negative. Exam: 17:11 Constitutional: This is a well developed, well nourished patient who is awake, alert, jmm and in no acute distress. Head/Face: atraumatic. Eyes: EOMI, no conjunctival erythema appreciated ENT: Moist Mucus Membranes Neck: Trachea midline, Supple Chest/axilla: Normal chest wall appearance and motion. Cardiovascular: Regular rate and rhythm. No edema appreciated Respiratory: Normal respirations, no respiratory distress appreciated 17:11 Back: Normal ROM Skin: General appearance color normal MS/ Extremity: Moves all extremities, no obvious deformities appreciated, no edema noted to the lower extremities Neuro: Awake and alert Psych: Behavior is normal, Mood is normal, Patient is cooperative and pleasant 17:11 Abdomen/GI: Inspection: abdomen appears normal, Bowel sounds: normal, Palpation: soft, mild abdominal tenderness, in the right lower quadrant. Vital Signs: 16:59 BP 162 / 85; Pulse 106; Resp 16; Temp 99.9(O); Pulse Ox 100% on R/A; Weight 114.31 kg jb4 (R); Height 6 ft. 6 in. (198.12 cm) (R); Pain 6/10; 20:01 BP 164 / 76; Pulse 74; Resp 18; Temp 97.5(TE); Pulse Ox 99% on R/A; Pain 0/10; pearl 16:59 Body Mass Index 29.12 (114.31 kg, 198.12 cm) jb4 MDM: 17:11 Patient medically screened. brenda 20:14 Data reviewed: vital signs, nurses notes. Counseling: I had a detailed discussion with maya the patient and/or guardian regarding: the historical points, exam findings, and any diagnostic results supporting the discharge/admit diagnosis, lab results, radiology results, the need for outpatient follow up, to return to the emergency department if symptoms worsen or persist or if there are any questions or concerns that arise at home. ED course: Patient is alert nontoxic in appearance in the ED. I did discuss CT findings with the patient along with the need for close follow-up for reevaluation. Patient advised to follow-up with his PCP/gastroenterology for further evaluation due to findings on the CT. Patient otherwise given strict return precautions and will be treated with oral antibiotics. Patient understood agrees plan of care.. 01/03 17:12 Order name: CBC with Diff; Complete Time: 19:18 [facility] 01/03 17:12 Order name: CMP; Complete Time: 19:22 [facility] 01/03 17:12 Order name: Lipase; Complete Time: 19:22 [facility] 01/03 17:20 Order name: Procalcitonin; Complete Time: 18:32 [facility] 01/03 17:20 Order name: Lactate; Complete Time: 18:11 [facility] 01/03 17:20 Order name: Blood Culture Adult (2) [facility] 01/03 17:12 Order name: CT Abd/Pelvis - IV Contrast Only; Complete Time: 20:11 [facility] 01/03 17:21 Order name: Urine Culture [facility] 01/03 18:55 Order name: Urine Dipstick-Ancillary; Complete Time: 18:55 [facility] 01/03 17:12 Order name: IV Saline Lock; Complete Time: 17:45 [facility] 01/03 17:12 Order name: Labs collected and sent; Complete Time: 17:45 [facility] 01/03 17:21 Order name: Urine Dipstick-Ancillary (obtain specimen); Complete Time: 19:01 [facility] Administered Medications: 18:01 Drug: NS 0.9% 1000 ml Route: IV; Rate: 1 bolus; Site: right forearm; jd3 20:28 Follow up: Response: No adverse reaction; IV Status: Completed infusion; IV Intake: tw5 1000ml 18:01 Drug: Pepcid (famotidine) 20 mg Route: IVP; Site: right forearm; jd3 20:28 Follow up: Response: No adverse reaction tw5 18:01 Drug: NS 0.9% 1000 ml Route: IV; Rate: 1 bolus; Site: right forearm; jd3 20:28 Follow up: Response: No adverse reaction; IV Status: Completed infusion; IV Intake: tw5 1000ml 18:02 Drug: Zofran (Ondansetron) 4 mg Route: IVP; Site: right forearm; jd3 20:28 Follow up: Response: No adverse reaction tw5 18:02 Drug: Rocephin (cefTRIAXone) 2 grams Route: IV; Rate: calculated rate; Site: right jd3 forearm; 20:28 Follow up: IV Status: Completed infusion; IV Intake: 50ml tw5 Disposition Summary: 01/03/22 20:15 Discharge Ordered Location: Home [facility] Condition: Stable [facility] Diagnosis - Abdominal Pain jmm - Flank Pain jmm - UTI jmm - Hematuria, unspecified jmm Followup: [facility] - With: Maxwell Singh MD - When: 2 - 3 days - Reason: Recheck today's complaints, Continuance of care, Re-evaluation by your physician Followup: [facility] - With: Gold Vital MD - When: 2 - 3 days - Reason: Recheck today's complaints, Continuance of care, Re-evaluation by your physician Discharge Instructions: - Discharge Summary Sheet jmm - Flank Pain, Adult jmm - Urinary Tract Infection, Adult m Forms: - Medication Reconciliation Form [facility] - Thank You Letter [facility] - Antibiotic Education m - Prescription Opioid Use [facility] - Work release form jb4 Prescriptions: - Cephalexin 500 mg Oral Capsule - take 1 capsule by ORAL route every 8 hours for 10 days; 30 capsule; Refills: 0, jmm Product Selection Permitted Signatures: Dispatcher [employer] Macario Slade MD MD cha Mickail, Joel, PA PA jmm Bryson, James, RN RN jb4 Blake Herrera RN RN jd3 Ophelia Isabel PA PA sb3 Jennifer Gallegos tw5
--- NOTE | 2022-01-03 20:16 | ER ---
Nurse's Notes [facility] Name: Chris Barker Age: 66 yrs Sex: Male : 1955 Arrival Date: 01/03/2022 Time: 16:24 Bed 17 Private MD: Diagnosis: Abdominal Pain;Flank Pain;UTI;Hematuria, unspecified Presentation: 01/03 16:59 Chief complaint: Patient states: I started having bloody urine about a month ago. Was jb4 seen and given meds for it. I had a kidney stone about 6 months prior. I started noticing a bad pain on Thursday that started in my right lower abdomen and radiates to my right lower back. Thursday I noticed it was harder to urinate and it was darker and had no appetite. Coronavirus screen: At this time, the client does not indicate any symptoms associated with coronavirus-19. Ebola Screen: No symptoms or risks identified at this time. Initial Sepsis Screen: Does the patient meet any 2 criteria? No. Patient's initial sepsis screen is negative. Does the patient have a suspected source of infection? No. Patient's initial sepsis screen is negative. Risk Assessment: Do you want to hurt yourself or someone else? Patient reports no desire to harm self or others. Onset of symptoms was January 01, 2022. Transition of care: patient was not received from another setting of care. 16:59 Method Of Arrival: Ambulatory [facility] 16:59 Acuity: ALTHEA 3 jb4 Historical: - Allergies: 17:08 lisinopril; jb4 - PMHx: 17:08 HTN; DM type 2; kidney stones; jb4 - Immunization history:: Adult Immunizations up to date. - Social history:: Smoking status: Patient reports the use of cigarette tobacco products, occasional. Screenin:23 Abuse screen: Denies threats or abuse. Nutritional screening: No deficits noted. jd3 Tuberculosis screening: No symptoms or risk factors identified. Fall Risk Ambulatory Aid- None/Bed Rest/Nurse Assist (0 pts). Gait- Normal/Bed Rest/Wheelchair (0 pts) Mental Status- Oriented to own ability (0 pts). Total Espinoza Fall Scale indicates No Risk (0-24 pts). Assessment: 17:30 General: Appears in no apparent distress. comfortable, Behavior is calm, cooperative, jd3 appropriate for age. Pain: Complains of pain in low back area, right lower quadrant and left lower quadrant Quality of pain is described as radiating, sharp. Neuro: Level of Consciousness is awake, alert, obeys commands, Oriented to person, place, time, situation. Cardiovascular: Capillary refill < 3 seconds Patient's skin is warm and dry. Respiratory: Airway is patent Respiratory effort is even, unlabored, Respiratory pattern is regular, symmetrical, Denies cough, shortness of breath. GI: Abdomen is flat, distended, Abd is soft and non tender X 4 quads. Reports lower abdominal pain, nausea. : No signs and/or symptoms were reported regarding the genitourinary system. EENT: No signs and/or symptoms were reported regarding the EENT system. Derm: Skin is intact, Skin is dry, Skin is normal, Skin temperature is warm. Musculoskeletal: Circulation, motion, and sensation intact. Range of motion: intact in all extremities. 18:21 Reassessment: Patient appears in no apparent distress at this time. No changes from jd3 previously documented assessment. Patient and/or family updated on plan of care and expected duration. Pain level reassessed. Patient is alert, oriented x 3, equal unlabored respirations, skin warm/dry/pink. 19:38 Reassessment: Patient appears in no apparent distress at this time. No changes from pearl previously documented assessment. The pt is being taken to CT for his scan, at this time. He will be placed on the monitor when he returns, for VS. 20:02 Reassessment: The pt returned from CT and VS were taken. His is at bedside. pearl 20:34 Reassessment: The float nurse and the provider are dc'ing the pt, after giving pt pearl education to him and his and his SL. He is in NAD. Vital Signs: 16:59 BP 162 / 85; Pulse 106; Resp 16; Temp 99.9(O); Pulse Ox 100% on R/A; Weight 114.31 kg jb4 (R); Height 6 ft. 6 in. (198.12 cm) (R); Pain 6/10; 20:01 BP 164 / 76; Pulse 74; Resp 18; Temp 97.5(TE); Pulse Ox 99% on R/A; Pain 0/10; pearl 16:59 Body Mass Index 29.12 (114.31 kg, 198.12 cm) jb4 ED Course: 16:24 Patient arrived in ED. kz 16:44 Jesse Moore PA is PHCP. jmm 16:44 Macario Jett MD is Attending Physician. jmm 17:07 Triage completed. jb4 17:08 Arm band placed on right wrist. jb4 17:12 Blake Herrera, JER is Primary Nurse. jd3 17:45 Inserted saline lock: 20 gauge in right forearm, using aseptic technique. Blood jd3 collected. 18:23 Patient has correct armband on for positive identification. Bed in low position. Call jd3 light in reach. Side rails up X 1. Adult w/ patient. Pulse ox on. NIBP on. 19:08 Urine Culture Sent. dh3 19:39 No provider procedures requiring assistance completed. pearl 19:51 CT Abd/Pelvis - IV Contrast Only In Process Unspecified. EDMS 20:15 Maxwell Singh MD is Referral Physician. jmm 20:17 Gold Vital MD is Referral Physician. jmm 20:39 intact, bleeding controlled, No redness/swelling at site. Pressure dressing applied. pearl Administered Medications: 18:01 Drug: NS 0.9% 1000 ml Route: IV; Rate: 1 bolus; Site: right forearm; jd3 20:28 Follow up: Response: No adverse reaction; IV Status: Completed infusion; IV Intake: tw5 1000ml 18:01 Drug: Pepcid (famotidine) 20 mg Route: IVP; Site: right forearm; jd3 20:28 Follow up: Response: No adverse reaction tw5 18:01 Drug: NS 0.9% 1000 ml Route: IV; Rate: 1 bolus; Site: right forearm; jd3 20:28 Follow up: Response: No adverse reaction; IV Status: Completed infusion; IV Intake: tw5 1000ml 18:02 Drug: Zofran (Ondansetron) 4 mg Route: IVP; Site: right forearm; jd3 20:28 Follow up: Response: No adverse reaction tw5 18:02 Drug: Rocephin (cefTRIAXone) 2 grams Route: IV; Rate: calculated rate; Site: right jd3 forearm; 20:28 Follow up: IV Status: Completed infusion; IV Intake: 50ml tw5 Intake: 20:28 IV: 50ml; Total: 50ml. tw5 20:28 IV: 1000ml; Total: 1050ml. tw5 20:28 IV: 1000ml; Total: 2050ml. tw5 Outcome: 19:39 Condition: stable pearl 20:15 Discharge ordered by . maya 20:39 Discharged to home ambulatory. pearl 20:39 Discharge instructions given to patient, Instructed on discharge instructions, follow up and referral plans. Demonstrated understanding of instructions, follow-up care, medications, Prescriptions given X 20:40 Patient left the ED. pearl Addendum: 01/07/2022 11:32 Addendum: Culture Results: Positive urine culture. Bacteria is resistant to, has a a5 intermediate sensitivity, or is not tested against prescribed antibiotics. Report given to BALBIR for further evaluation and then to car supplier for follow up with patient. Phone call Attempt #1 left voice mail. Signatures: Dispatcher [employer] EDMS Jesse Moore PA PA jmm Calderon, Audri, RN RN aa5 Kwasi Gutierrez, RN RN jb4 Oneida Tejeda 3 Blake Herrera RN RN Jennifer Taylor tw5 Carly Paez RN RN bo Zapata, Kelly kz
[2022-01-03 20:49] VITALS: BP 164/76; TEMP 97.5; O2SAT 99
== END 2022-01-03 20:40 | disposition home or self-care (01) ==
LOC: ER 16:18
DX: N39.0 Urinary tract infection, site not specified (principal); R31.9 Hematuria, unspecified; E11.9 Type 2 diabetes mellitus without complications; I10 Essential (primary) hypertension; Z87.442 Personal history of urinary calculi; Z72.0 Tobacco use
CPT/HCPCS: 96365; 87040 ×2; 87088; 85025; 87086; 36415; 83605; 87077; 87186; 81003; 83690; 80053; 84145; 74177; 96375; 99284; 96366; Q9967; J7030; J2405; J0696; J3490

== ENCOUNTER 2024-03-20 14:06 | Emergency (ER) | payer BC, OTHER ==
[2024-03-20 15:23] LABS: Absolute Basophils 0.1 K/uL (0-0.5); Absolute Eosinophils 0.3 K/uL (0-0.5); Absolute Lymphocytes (CBC) 1.8 K/uL (0.7-4.9); Absolute Monocytes 0.8 K/uL (0.1-1.3); Absolute Neutrophil 5.9 K/uL (1.8-8.0); Basophils % 0.8 % (0-1.3); Eosinophils % 3.5 % (0-4.4); Hemoglobin 13.3 g/dL (13.6-17.9); Lymphocytes % 20.5 % (15.3-44.8); MCH 30.7 pg (27.0-35.0); MCV 90.2 fL (80-100); MPV 8.3 fL (7.6-11.3); Monocytes % 8.9 % (3.3-12.3); Neutrophils % 66.3 % (41.7-73.7); Nucleated Red Blood Cells % 0.1 % (0-0); Platelets 280 thou/uL (152-406); RBC Red Blood Cell Count 4.33 M/uL (4.33-5.43); Red Cell Distribution Width 14.9 % (12.1-15.2)
[2024-03-20 15:27] LABS: PT Prothrombin Time 14.4 SECONDS (9.4-12.5); Protime INR 1.32
[2024-03-20 15:41] LABS: Troponin High Sensitivity 33.1 pg/mL (<58.9)
[2024-03-20 15:54] LABS: SARS-CoV-2 Antigen CONTROL BLUE LINE VIS/BG OK; SARS-CoV-2 Antigen Rapid Res Negative (Negative)
[2024-03-20] MEDS ORDERED: FUROSEMIDE 40 MG/4 ML VIAL ONE (16:22)
--- NOTE | 2024-03-20 16:40 | RAD REPORT ---
EXAM DESCRIPTION: CT - Chest For Pe Angio - 03/20/2024 4:05 pm CLINICAL HISTORY: sob COMPARISON: None. TECHNIQUE: Dynamically enhanced axial 3 mm thick images of the chest were obtained during administra tion of 100 mL Isovue 370 IV contrast. Coronal and oblique reconstruction images were generated and r eviewed. Exam utilizes a protocol for optimal evaluation of pulmonary arterial tree. Maximum intensity projections 3D imaging was utilized All CT scans are performed using dose optimization technique as appropriate and may include automated exposure control or mA/KV adjustment according to patient size. FINDINGS: A pulmonary embolus is not seen. A thoracic aortic aneurysm is not noted. Small bilateral pleural effusions. A pericardial effusion is not seen. Moderate to marked cardiomegaly. Prominence IVC and hepatic veins may indicate right heart failure A lung consolidation is not present. IMPRESSION: Negative for a pulmonary embolism.
--- NOTE | 2024-03-20 16:40 | RAD REPORT ---
EXAM DESCRIPTION: Melissa Single View03/20/2024 2:59 pm CLINICAL HISTORY: Cough COMPARISON: none FINDINGS: The lungs appear clear of acute infiltrate. The heart is moderately to markedly enlarged IMPRESSION: No acute abnormalities displayed
--- NOTE | 2024-03-20 17:38 | EDPHYS ---
Physician Documentation [facility] Name: Chris Barker Age: 68 yrs Sex: Male : 1955 Arrival Date: 03/20/2024 Time: 14:06 Bed 8 Private MD: ED Physician Marco Hogan HPI: 03/20 15:01 This 68 yrs old Black Male presents to ER via Ambulatory with complaints of Breathing ec2 Difficulty. 15:01 Patient arrives today for progressive shortness of breath. Reports that he has been ec2 experiencing progressive shortness of breath ongoing for several weeks. States that he was in urgent care and was told he has enlarged heart and to follow-up with cardiology. Not on a diuretic. No history of CHF.. Historical: - Allergies: 14:24 Lisinopril; ll1 - PMHx: 14:24 DM type 2; HTN; Kidney stones; CPAP (Kidney stones); ll1 - Immunization history:: Adult Immunizations up to date. - Infectious Disease History:: Denies. - Social history:: Smoking status: Patient/guardian denies using tobacco, Stopped _ months ago 4. ROS: 15:01 Constitutional: as per hpi ec2 Exam: 15:01 Constitutional: GEN: NAD Head: atraumatic Eyes: EOMI Ears: External ears are ec2 normal. CV: regular rate, no lower extremity edema. LUNGS: no respiratory distress, no wheezes, rales, or rhonchi ABD: non-distended SKIN: no evidence of rashes MSK: no evidence of trauma NEURO: moves all extremities equally Vital Signs: 14:25 BP 184 / 113; Pulse 88; Resp 18; Temp 97.9; Pulse Ox 99% on R/A; Weight 113.4 kg; ll1 Height 6 ft. 6 in. ; Pain 6/10; 16:12 BP 160 / 116; Pulse 79; Resp 20 S; Pulse Ox 95% on R/A; kc6 17:14 BP 193 / 137; Pulse 73; Resp 18 S; Pulse Ox 97% on R/A; kc6 14:25 Body Mass Index 28.89 (113.40 kg, 198.12 cm) ll1 14:25 Pain Scale: Adult ll1 MDM: 14:41 Patient medically screened. ec2 15:02 Data reviewed: vital signs. ED course: Patient arrives today for evaluation of ec2 progressive shortness of breath ongoing for several weeks. Examination remarkable for nontoxic individual is otherwise in no acute distress. Will obtain lab work, EKG, chest x-ray. Will also obtain CT scan of the chest. Differential diagnosis includes ACS, PE, CHF.. 15:28 ED course: EKG independently reviewed and interpreted by me, shows a sinus rhythm, rate ec2 of 80, no acute ST segment ovation, and was reported for QTc prolongation of 500.. 16:05 ED course: Patient with Metabolic profile is nonactionable, CBC is reassuring, BNP ec2 elevated at 4500. Ranges, negative flu and COVID testing. . 17:37 ED course: On reassessment patient with significant urine output. Patient is saturating ec2 comfortably, breathing comfortably. Will discharge home. Return precautions given. Suspect CHF, fluid retention, no hypoxia, no increased work of breathing. 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 Return precautions given.. 03/20 14:34 Order name: Basic Metabolic Panel; Complete Time: 16:04 03/20 14:34 Order name: CBC with Diff; Complete Time: 16:04 03/20 14:34 Order name: NT PRO-BNP; Complete Time: 16:04 03/20 14:34 Order name: PT-INR; Complete Time: 16:04 03/20 14:34 Order name: Troponin HS; Complete Time: 16:04 03/20 14:34 Order name: SARS RAPID; Complete Time: 16:04 03/20 14:34 Order name: Influenza Screen (a \T\ B); Complete Time: 16:04 03/20 14:34 Order name: XRAY Chest (1 view); Complete Time: 17:19 03/20 15:02 Order name: CT Chest For PE Angio; Complete Time: 17:19 03/20 14:34 Order name: Cardiac monitoring; Complete Time: 15:15 03/20 14:34 Order name: EKG - Nurse/Tech; Complete Time: 15:15 03/20 14:34 Order name: IV Saline Lock; Complete Time: 15:15 03/20 14:34 Order name: Labs collected and sent; Complete Time: 15:15 ec2 03/20 14:34 Order name: O2 Per Protocol; Complete Time: 14:34 ec2 03/20 14:34 Order name: O2 Sat Monitoring; Complete Time: 14:35 ec2 Administered Medications: 16:25 Drug: Furosemide IVP 40 mg IVP once; give over 2 minutes Route: IVP; Site: right nj1 forearm; 17:47 Follow up: Response: No adverse reaction kc6 17:46 Drug: Furosemide PO 40 mg PO once Route: PO; kc6 17:47 Follow up: Response: No adverse reaction kc6 Disposition Summary: 03/20/24 17:38 Discharge Ordered Notes: Location: Home ec2 Condition: Stable ec2 Diagnosis - Dyspnea, unspecified ec2 - Heart failure, unspecified ec2 Followup: ec2 - With: Private Physician - When: - Reason: Re-evaluation by your physician Discharge Instructions: - Discharge Summary Sheet ec2 - Heart Failure, Diagnosis, Soti-lb-Mmbf ec2 Forms: - Medication Reconciliation Form ec2 - Antibiotic Education ec2 - Prescription Opioid Use ec2 - Patient Portal Instructions ec2 - Leadership Thank You Letter ec2 Prescriptions: - Lasix 40 mg Oral tablet - take 1 tablet ORAL route once daily for 15 days; 15 tablet; Refills: 0, Product ec2 Selection Permitted Signatures: Dispatcher [employer] EDElizabeth Hernandez RN RN ll1 Shira Prabhakar RN RN kc6 Chelsea Holcomb RN RN nj1 Marco Hogan MD MD ec2 Corrections: (The following items were deleted from the chart) 14:34 14:34 BASIC METABOLIC PANEL+C.LAB.BRZ ordered. EDMS EDMS 14:34 14:34 CBC+H.LAB.BRZ ordered. EDMS EDMS 14:34 14:34 PROBNP+C.LAB.BRZ ordered. EDMS EDMS 14:34 14:34 PROTIME (+INR)+COAG.LAB.BRZ ordered. EDMS EDMS 14:34 14:34 Troponin High Sensitivity+C.LAB.BRZ ordered. EDMS EDMS 14:35 14:34 Chest Single View+RAD.RAD.BRZ ordered. EDMS EDMS 14:35 14:35 SARS-COV-2 Antigen Rapid+I.LAB.BRZ ordered. EDMS EDMS 14:35 14:35 Influenza Screen (A \T\ B)+BA.LAB.BRZ ordered. EDMS EDMS 15:03 15:03 Chest For PE Angio+CT.RAD.BRZ ordered. EDMS EDMS 16:05 16:05 ED course: Point withinMetabolic profile is nonactionable, CBC is reassuring, BNP ec2 elevated at 4500. Ranges, negative flu and COVID testing. . ec2
--- NOTE | 2024-03-20 17:38 | ER ---
Nurse's Notes [facility] Name: Chris Barker Age: 68 yrs Sex: Male : 1955 Arrival Date: 03/20/2024 Time: 14:06 Bed 8 Private MD: Diagnosis: Dyspnea, unspecified;Heart failure, unspecified Presentation: 03/20 14:25 Chief complaint: Patient states: SOB for 10 days. Went to Urgent Care 2 days ago, told ll1 he had a enlarged heart and to follow-up with a quality analyst. States he can barely sleep now. CPAP and inhalers not helping. No known fevers. Coronavirus screen: Client denies travel out of the [place] in the last 14 days. difficulty breathing, fatigue, shortness of breath, Client presents with at least one sign or symptom that may indicate coronavirus-19. Standard/surgical mask placed on the client. Ebola Screen: Patient denies travel to an Ebola-affected area in the 21 days before illness onset. Initial Sepsis Screen: Does the patient meet any 2 criteria? No. Patient's initial sepsis screen is negative. Does the patient have a suspected source of infection? No. Patient's initial sepsis screen is negative. Risk Assessment: Do you want to hurt yourself or someone else? Patient reports no desire to harm self or others. Onset of symptoms was March 12, 2024. 14:25 Method Of Arrival: Ambulatory [facility] 14:25 Acuity: ALTHEA 3 ll1 Triage Assessment: 14:27 General: Appears uncomfortable, Behavior is calm, cooperative, appropriate for age. ll1 General: Reports fatigue for. Pain: Complains of pain in low back Quality of pain is described as aching. Respiratory: Reports shortness of breath labored breathing pain with respiration Onset: The symptoms/episode began/occurred 10 days, the patient has moderate shortness of breath. Historical: - Allergies: 14:24 Lisinopril; ll1 - PMHx: 14:24 DM type 2; HTN; Kidney stones; CPAP (Kidney stones); ll1 - Immunization history:: Adult Immunizations up to date. - Infectious Disease History:: Denies. - Social history:: Smoking status: Patient/guardian denies using tobacco, Stopped _ months ago 4. Screenin:40 [facility] ED Fall Risk Assessment (Adult) History of falling in the last 3 months, nj1 including since admission No falls in past 3 months (0 pts) Confusion or Disorientation No (0 pts) Intoxicated or Sedated No (0 pts) Impaired Gait No (0 pts) Mobility Assist Device Used No (0 pt) Altered Elimination No (0 pt) Score/Fall Risk Level 0 - 2 = Low Risk Oriented to surroundings, Maintained a safe environment, Hourly rounding (assess needs \T\ fall precautionary measures) done. 14:40 Abuse screen: Denies threats or abuse. Denies injuries from another. Nutritional nj1 screening: No deficits noted. Tuberculosis screening: No symptoms or risk factors identified. Assessment: 14:40 General: Appears in no apparent distress. comfortable, Behavior is calm, cooperative, nj1 appropriate for age. 14:40 Pain: Complains of pain in back. nj1 14:40 Neuro: Level of Consciousness is awake, alert, obeys commands, Oriented to person, nj1 place, time, situation. Cardiovascular: Patient's skin is warm and dry. Rhythm is regular. 14:40 Respiratory: Reports shortness of breath at rest Airway is patent Respiratory effort is nj1 even, unlabored. 16:15 Reassessment: Patient appears in no apparent distress at this time. Patient and/or nj1 family updated on plan of care and expected duration. Pain level reassessed. Patient is alert, oriented x 3, equal unlabored respirations, skin warm/dry/pink. 17:14 Reassessment: Patient appears in no apparent distress at this time. No changes from kc6 previously documented assessment. Patient and/or family updated on plan of care and expected duration. Pain level reassessed. Patient is alert, oriented x 3, equal unlabored respirations, skin warm/dry/pink. Vital Signs: 14:25 BP 184 / 113; Pulse 88; Resp 18; Temp 97.9; Pulse Ox 99% on R/A; Weight 113.4 kg; ll1 Height 6 ft. 6 in. ; Pain 6/10; 16:12 BP 160 / 116; Pulse 79; Resp 20 S; Pulse Ox 95% on R/A; kc6 17:14 BP 193 / 137; Pulse 73; Resp 18 S; Pulse Ox 97% on R/A; kc6 14:25 Body Mass Index 28.89 (113.40 kg, 198.12 cm) ll1 14:25 Pain Scale: Adult ll1 ED Course: 14:10 Patient arrived in ED. im 14:20 Chelsea Holcomb, JER is Primary Nurse. nj1 14:24 Arm band placed on. ll1 14:27 Triage completed. ll1 14:33 Marco Hogan MD is Attending Physician. ec2 14:40 Patient has correct armband on for positive identification. Bed in low position. Call nj1 light in reach. Adult w/ patient. 14:40 Provided Education on: call light, fall precautions. nj1 15:01 XRAY Chest (1 view) In Process Unspecified. EDMS 15:15 Initial lab(s) drawn, by la, sent to lab. Inserted saline lock: 20 gauge in right zm forearm, using aseptic technique. Blood collected. 15:15 Basic Metabolic Panel Sent. zm 15:15 CBC with Diff Sent. zm 15:15 NT PRO-BNP Sent. zm 15:15 PT-INR Sent. zm 15:15 Troponin HS Sent. 15:16 EKG done, by ED staff, reviewed by Marco Hogan MD. 16:07 CT Chest For PE Angio In Process Unspecified. EDMS 16:33 Notified ED physician of vital signs. nj1 17:46 No provider procedures requiring assistance completed. IV discontinued, intact, kc6 bleeding controlled, No redness/swelling at site. Pressure dressing applied. Administered Medications: 16:25 Drug: Furosemide IVP 40 mg IVP once; give over 2 minutes Route: IVP; Site: right nj1 forearm; 17:47 Follow up: Response: No adverse reaction kc6 17:46 Drug: Furosemide PO 40 mg PO once Route: PO; kc6 17:47 Follow up: Response: No adverse reaction kc6 Medication: 15:28 VIS not applicable for this client. nj1 Outcome: 17:38 Discharge ordered by MD. ec2 17:46 Discharged to home ambulatory, with significant other, kc6 17:46 Condition: good 17:46 Discharge instructions given to patient, significant other, Instructed on discharge instructions, follow up and referral plans. medication usage, Demonstrated understanding of instructions, follow-up care, medications, Prescriptions given X 1, 17:47 Patient left the ED. kc6 Signatures: Dispatcher [employer] EDMS Elizabeth Huber RN RN 1 Wanda Bailon Kaitlyn RN RN kc6 Chelsea Holcomb RN RN nj1 Nikki Espinoza Edwin, MD MD ec2 Corrections: (The following items were deleted from the chart) 15:28 14:40 Pain: Denies pain. nj1 nj1
[2024-03-20] MEDS ORDERED: FUROSEMIDE 40 MG TABLET ONE (17:41)
[2024-03-20 18:03] VITALS: TEMP 97.9
[2024-03-20 18:22] VITALS: BP 193/137; O2SAT 97
--- NOTE | 2024-03-23 12:17 | EKG ---
Test Date: 2024-03-20 Test Time: 15:21:33 Dye Maker: SHAWN MEASUREMENT RESULTS: Intervals: Rate: 80 GA: 186 QRSD: 104 QT: 434 QTc: 500 Adel: P: 67 GA: 186 QRS: 14 T: 258 INTERPRETIVE STATEMENTS: Normal sinus rhythm Possible Left atrial enlargement Left ventricular hypertrophy ST & T wave abnormality, consider inferolateral ischemia Prolonged QT Abnormal ECG No previous ECG available for comparison Electronically Signed On 03-23-24 12:12:45 CDT by Tato Joyner
== END 2024-03-20 17:47 | disposition home or self-care (01) ==
LOC: ER 14:06
DX: I50.9 Heart failure, unspecified (principal); I10 Essential (primary) hypertension; Z11.52 Encounter for screening for COVID-19
CPT/HCPCS: 93005; 85025; 80048; 36415; 85610; 84484; 83880; 87804 ×2; 71275; 71045; 96374; 99284; 87811; Q9967; J1940